=== PATIENT | female | born 1990 | race African-American/Black ===

== ENCOUNTER 2017-10-06 17:50 | Emergency (ER) | payer SELFPAY ==
[2017-10-06 18:00] VITALS: BP 132/85
[2017-10-06] MEDS ORDERED: ONDANSETRON 4 MG TAB.RAPDIS PO ONE (18:24)
--- NOTE | 2017-10-06 18:29 | ER Document Report ---
ED General - General Chief Complaint: Urinary Problem Stated Complaint: NAUSEA, BURNING WITH URINATION Time Seen by Provider: 10/06/17 18:24 Notes: 27-year-old female here with complaints of burning with urination and nausea that has been ongoing for the past 1-2 days. She has not had any abdominal pain fevers chills or vomiting. She had some low back pain yesterday but this resolved. She has not tried taking any medication for the symptoms. She has tried "flushing it out" with water with not much success. She has no prior history of UTI. TRAVEL OUTSIDE OF THE [place] IN LAST 30 DAYS: No - Related Data Allergies/Adverse Reactions: No Known Allergies Allergy (Verified 06/05/16 09:12) Past Medical History - Social History Smoking Status: Unknown if Ever Smoked Family History: None Neurological Medical History: Reports: Hx Migraine Renal/ Medical History: Reports: Hx Ovarian Cysts Past Surgical History: Reports: Hx Nose Surgery - Procedure on her nose as a child for nose bleeds, unclear of type., Other - Patient had a procedure on her nose but unclear exactly what. - Immunizations Immunizations up to date: Yes Hx Diphtheria, Pertussis, Tetanus Vaccination: Yes Review of Systems - Review of Systems Notes: See history of present illness for pertinent positive review of systems; otherwise all review of systems have been reviewed and are negative Physical Exam - Vital signs Vitals: Temp Pulse Resp BP Pulse Ox 98.6 F 85 20 132/85 H 99 10/06/17 17:57 10/06/17 17:57 10/06/17 17:57 10/06/17 17:57 10/06/17 17:57 - Notes Notes: PHYSICAL EXAMINATION: GENERAL: Well-appearing and in no acute distress. HEAD: Atraumatic, normocephalic. EYES: Pupils equal round and reactive to light, extraocular movements intact, sclera anicteric, conjunctiva are normal. ENT: nares patent, oropharynx clear without exudates. Moist mucous membranes. NECK: Normal range of motion, supple without lymphadenopathy LUNGS: CTAB and equal. No wheezes rales or rhonchi. HEART: Regular rate and rhythm without murmurs ABDOMEN: Soft, no tenderness. No guarding, no rebound EXTREMITIES: Normal range of motion, no pitting edema. No cyanosis. NEUROLOGICAL: Cranial nerves grossly intact. Normal sensory/motor exams. PSYCH: Normal mood, normal affect. SKIN: Warm, Dry, normal turgor, no rashes or lesions noted Course - Re-evaluation Re-evalutation: 10/06/17 18:29 MEDICAL DECISION MAKING: Concern for UTI Will check urinalysis and give Zofran Patient understands and agrees to the plan of care 10/06/17 19:41 No significant findings for UTI but culture sent Given the patient's symptoms, will prescribe Macrobid and Pyridium - Vital Signs Vital signs: Temp Pulse Resp BP Pulse Ox 98.6 F 85 20 132/85 H 99 10/06/17 17:57 10/06/17 17:57 10/06/17 17:57 10/06/17 17:57 10/06/17 17:57 - Laboratory Laboratory results interpreted by me: 10/06/17 18:40 Urine Ketones TRACE H Urine Blood SMALL H Ur Leukocyte Esterase TRACE H Discharge - Discharge Clinical Impression: Dysuria Condition: Good Disposition: HOME, SELF-CARE Additional Instructions: Finish the antibiotics and do not skip any doses. You were seen in the emergency department at [facility]. Please followup with your primary physician in the next few days for further management/evaluation. Please return to the emergency department for worsening of symptoms or any symptom that you deem to be concerning or life-threatening. Thank you for allowing us to be part of your care. Prescriptions: Nitrofurantoin/Nitrofuran Mac [Macrobid 100 mg Capsule] 1 tab PO BID #20 capsule Phenazopyridine HCl [Pyridium 100 Mg Tablet] 100 mg PO BIDP PRN #20 tablet PRN Reason:
[2017-10-06 19:06] LABS: APPEARANCE,URINE CLEAR; BILIRUBIN,URINE NEGATIVE (NEGATIVE); COLOR,URINE STRAW; GLUCOSE, URINE NEGATIVE (NEGATIVE); KETONES,URINE TRACE mg/dL (NEGATIVE); LEUKOCYTE ESTERASE,URINE TRACE (NEGATIVE); NITRITE,URINE NEGATIVE (NEGATIVE); PROTEIN,URINE NEGATIVE (NEGATIVE); UROBILINOGEN,URINE NEGATIVE mg/dL (<2.0)
== END 2017-10-06 19:51 | disposition home or self-care (01) ==
LOC: ER 17:50
DX: R30.0 Dysuria (principal); R11.0 Nausea
CPT/HCPCS: 99283; 81025; 81001; S0119

== ENCOUNTER 2019-05-17 01:36 | Emergency (ER) | payer SELFPAY ==
[2019-05-17] MEDS ORDERED: ONDANSETRON 4 MG TAB.RAPDIS PO ONE (04:04)
[2019-05-17] MEDS ORDERED: GUAIFENESIN/CODEINE PHOS 100-10 MG/ 5 ML UDC PO ONE (04:04)
--- NOTE | 2019-05-17 04:09 | ER Document Report ---
ED General - General Chief Complaint: Sore Throat Stated Complaint: SORE THROAT/CHEST TIGHTNESS Time Seen by Provider: 05/17/19 03:56 TRAVEL OUTSIDE OF THE [place] IN LAST 30 DAYS: No - HPI Notes: Patient is a 29-year-old female who presents emergency department for evaluation of sore throat and cough. Her sore throat started on Thursday. Her cough started on Thursday. Now patient presents to the ED for further evaluation. She denies any ear pain. No nasal congestion. No vomiting. She is eating and drinking normally. She is not short of breath. Normal bowel movements. No neck pain or stiffness. - Related Data Allergies/Adverse Reactions: No Known Allergies Allergy (Verified 06/05/16 09:12) Home Medications: None Past Medical History - General Information source: Patient - Social History Smoking Status: Current Some Day Smoker Family History: None Patient has suicidal ideation: No Patient has homicidal ideation: No Neurological Medical History: Reports: Hx Migraine Renal/ Medical History: Reports: Hx Ovarian Cysts. Denies: Hx Peritoneal Dialysis Past Surgical History: Reports: Hx Nose Surgery - Procedure on her nose as a child for nose bleeds, unclear of type., Other - Patient had a procedure on her nose but unclear exactly what. - Immunizations Immunizations up to date: Yes Hx Diphtheria, Pertussis, Tetanus Vaccination: Yes Review of Systems - Review of Systems Constitutional: No symptoms reported EENT: See HPI Cardiovascular: No symptoms reported Respiratory: See HPI Gastrointestinal: No symptoms reported Genitourinary: No symptoms reported Musculoskeletal: No symptoms reported Skin: No symptoms reported Neurological/Psychological: No symptoms reported Physical Exam - Vital signs Vitals: Temp Pulse Resp BP Pulse Ox 98.0 F 84 17 121/88 H 100 05/17/19 01:48 05/17/19 01:48 05/17/19 01:48 05/17/19 01:48 05/17/19 01:48 - Notes Notes: Vital signs reviewed, please refer to chart. Head is normocephalic, atraumatic. Pupils equal round, reactive to light. Oral mucosa is moist. Pharynx is mildly erythematous but no exudates or petechiae noted. Neck is supple without meningismus. No anterior cervical adenopathy. Heart is regular rate and rhythm. Lungs are clear to auscultation bilaterally. Abdomen is soft, nontender, normoactive bowel sounds throughout. Extremities without cyanosis, clubbing. Posterior calves are nontender. Peripheral pulses are equal. Skin is warm and dry. Patient is awake, alert, neurological exam is nonfocal. Course - Re-evaluation Re-evalutation: 05/17/19 04:07 Patient presents emergency department for evaluation. She had a strep screen ordered through triage which was found to be unremarkable, culture pending. At this point I suspect the patient has a URI. She has normal breath sounds, is oxygenating at 100%, respirations are easy and unlabored. She is given Robitussin-AC here, in addition to Zofran, and will be sent home with Tessalon Perles. She is to return to the ED with worsening. - Vital Signs Vital signs: Temp Pulse Resp BP Pulse Ox 98.0 F 84 17 121/88 H 100 05/17/19 01:48 05/17/19 01:48 05/17/19 01:48 05/17/19 01:48 05/17/19 01:48 Discharge - Discharge Clinical Impression: Sore throat Upper respiratory infection Qualifiers: URI type: unspecified URI Qualified Code(s): J06.9 - Acute upper respiratory infection, unspecified Condition: Stable Disposition: HOME, SELF-CARE Instructions: Upper Respiratory Illness ([facility]), Sore Throat ([facility]) Additional Instructions: Rest, stay well-hydrated. Take Tessalon Perles as needed for cough. Follow-up with your primary care doctor this week. You will be contacted if your throat culture becomes positive. Return to the emergency department with worsening or new concerning symptoms.
[2019-05-17 04:24] VITALS: BP 117/84
== END 2019-05-17 04:23 | disposition home or self-care (01) ==
LOC: ER 01:36
DX: J06.9 Acute upper respiratory infection, unspecified (principal); J02.9 Acute pharyngitis, unspecified; R05 Cough; F17.200 Nicotine dependence, unspecified, uncomplicated
CPT/HCPCS: 87070; 87880; S0119; 99283

== ENCOUNTER 2019-07-17 19:47 | Emergency (ER) | payer MEDICAID ==
[2019-07-17] MEDS ORDERED: NORMAL SALINE 1000 ML 1,000 ML IV ONE (20:36)
[2019-07-17] MEDS ORDERED: METOCLOPRAMIDE HCL INJ/PF 10 MG/2 ML SDV IV ONE (20:36)
--- NOTE | 2019-07-17 20:39 | ER Document Report ---
ED Medical Screen (RME) - General Chief Complaint: Abdominal Pain Stated Complaint: STOMACH PAIN Time Seen by Provider: 07/17/19 20:31 Notes: Patient is a 29-year-old female, G3, P0 who presents to the emergency department with a chief complaint of abdominal pain. She also states that she feels nauseous. She is about 5 to 6 weeks , as per patient. Exam: Soft mildly tender right mid abdomen. I have greeted and performed a rapid initial assessment of this patient. A comprehensive ED assessment and evaluation of the patient, analysis of test results and completion of medical decision making process will be conducted by an additional ED providers. TRAVEL OUTSIDE OF THE [place] IN LAST 30 DAYS: No - Related Data Allergies/Adverse Reactions: No Known Allergies Allergy (Verified 06/05/16 09:12) Home Medications: Vitamins Past Medical History - Social History Frequency of alcohol use: None Drug Abuse: None Neurological Medical History: Reports: Hx Migraine Renal/ Medical History: Reports: Hx Ovarian Cysts. Denies: Hx Peritoneal Dialysis Past Surgical History: Reports: Hx Nose Surgery - Procedure on her nose as a child for nose bleeds, unclear of type., Other - Patient had a procedure on her nose but unclear exactly what. - Immunizations Immunizations up to date: Yes Hx Diphtheria, Pertussis, Tetanus Vaccination: Yes Physical Exam - Vital signs Vitals: Temp Pulse Resp BP Pulse Ox 98.1 F 92 16 143/77 H 100 07/17/19 19:52 07/17/19 19:52 07/17/19 19:52 07/17/19 19:52 07/17/19 19:52 Course - Vital Signs Vital signs: Temp Pulse Resp BP Pulse Ox 98.1 F 92 16 143/77 H 100 07/17/19 19:52 07/17/19 19:52 07/17/19 19:52 07/17/19 19:52 07/17/19 19:52
[2019-07-17 21:18] LABS: APPEARANCE,URINE SLIGHTLY-CLOUDY; BILIRUBIN,URINE NEGATIVE (NEGATIVE); COLOR,URINE YELLOW; GLUCOSE, URINE NEGATIVE (NEGATIVE); KETONES,URINE NEGATIVE (NEGATIVE); LEUKOCYTE ESTERASE,URINE NEGATIVE (NEGATIVE); NITRITE,URINE NEGATIVE (NEGATIVE); PROTEIN,URINE NEGATIVE (NEGATIVE); URINE SPECIFIC GRAVITY 1.015; UROBILINOGEN,URINE NEGATIVE mg/dL (<2.0)
[2019-07-17 21:25] LABS: ALBUMIN 4.7 g/dL (3.5-5.0); ALKALINE PHOSPHATASE 75 U/L (38-126); ANION GAP 10 (5-19); ASPARTATE AMINO TRANSFERASE 24 U/L (14-36); BILIRUBIN,DIRECT 0.2 mg/dL (0.0-0.4); BILIRUBIN,TOTAL 0.4 mg/dL (0.2-1.3); BLOOD UREA NITROGEN 11 mg/dL (7-20); CALCIUM 9.5 mg/dL (8.4-10.2); CARBON DIOXIDE 26 mmol/L (22-30); CHLORIDE 104 mmol/L (98-107); GLUCOSE 88 mg/dL (75-110); POTASSIUM 4.3 mmol/L (3.6-5.0); TOTAL PROTEIN 7.9 g/dL (6.3-8.2)
[2019-07-17 21:41] LABS: ABSOLUTE EOSINOPHILS # (AUTO) 0.2 10^3/uL (0.0-0.6); ABSOLUTE LYMPHOCYTES (AUTO) 3.6 10^3/uL (0.5-4.7); ABSOLUTE MONOCYTES (AUTO) 0.8 10^3/uL (0.1-1.4); ABSOLUTE NEUT (AUTO) 8.9 10^3/uL (1.7-8.2); BASOPHILS % (AUTO) 0.3 % (0-2); EOSINOPHILS % (AUTO) 1.4 % (0-6); HEMATOCRIT 37.3 % (36.0-47.0); HEMOGLOBIN 12.6 g/dL (12.0-15.5); LYMPHOCYTES % (AUTO) 26.7 % (13-45); MEAN CORPUSCULAR HEMOGLOBIN 32.4 pg (27.0-33.4); MEAN CORPUSCULAR HGB CONC 33.7 g/dL (32.0-36.0); MEAN CORPUSCULAR VOLUME 96 fl (80-97); MONOCYTES % (AUTO) 6.1 % (3-13); PLATELET COUNT 309 10^3/uL (150-450); RED BLOOD COUNT 3.88 10^6/uL (3.72-5.28); RED CELL DISTRIBUTION WIDTH 13.1 % (11.5-14.0); SEGMENTED NEUTROPHILS % (AUTO) 65.5 % (42-78); TOTAL CELLS COUNTED % (AUTO) 100 %; WHITE BLOOD COUNT 13.6 10^3/uL (4.0-10.5)
[2019-07-17 21:43] LABS: ACETAMINOPHEN < 10 ug/mL (10-30)
--- NOTE | 2019-07-17 21:49 | ER Document Report ---
ED General - General Chief Complaint: Abdominal Pain Stated Complaint: STOMACH PAIN Time Seen by Provider: 07/17/19 20:31 TRAVEL OUTSIDE OF THE [place] IN LAST 30 DAYS: No - Related Data Allergies/Adverse Reactions: No Known Allergies Allergy (Verified 06/05/16 09:12) Home Medications: Vitamins Past Medical History - Social History Smoking Status: Former Smoker Frequency of alcohol use: None Drug Abuse: None Family History: None Patient has suicidal ideation: No Patient has homicidal ideation: No Neurological Medical History: Reports: Hx Migraine Renal/ Medical History: Reports: Hx Ovarian Cysts. Denies: Hx Peritoneal Dialysis Past Surgical History: Reports: Hx Nose Surgery - Procedure on her nose as a child for nose bleeds, unclear of type., Other - Patient had a procedure on her nose but unclear exactly what. - Immunizations Immunizations up to date: Yes Hx Diphtheria, Pertussis, Tetanus Vaccination: Yes Physical Exam - Vital signs Vitals: Temp Pulse Resp BP Pulse Ox 98.1 F 92 16 143/77 H 100 07/17/19 19:52 07/17/19 19:52 07/17/19 19:52 07/17/19 19:52 07/17/19 19:52 - Notes Notes: This patient is 3 complaining of a right middle quadrant dental pain started yesterday and today he. But there is been some intermittent. She has some nausea but she is had this throughout most of the she has had no vomiting fevers chest pain or shortness of breath appetite is been good and had a Sam for lunch. No vaginal bleeding or discharge. Had a positive test but has not seen OB yet. before with no complications and no history of gallbladder disease\ Last history is unremarkable. Social history smokes but quit when she found out she is no alcohol LMP was May 2016 Review of systems pertinent positives and negatives in HPI otherwise all the systems were reviewed and acutely negative PHYSICIAN EXAM -vital signs are noted triage note and note from triage reviewed GENERAL: Well-appearing, well-nourished and in __no distress____ HEAD: Atraumatic, normocephalic. EYES: Pupils equal round and reactive to light, extraocular movements intact, sclera anicteric, conjunctiva are normal. ENT: nares patent, oropharynx clear without exudates. Moist mucous membranes. NECK: supple without lymphadenopathy LUNGS: Breath sounds clear to auscultation bilaterally and equal. No wheezes rales or rhonchi. HEART: Regular rate and rhythm without murmurs ABDOMEN: Soft, nontender, normoactive bowel sounds. There is no localizing tenderness in the right upper quadrant or the right lower quadrant. The uterus is nonenlarged EXTREMITIES: No deformity, no edema. NEUROLOGICAL: No focal neurological deficits. Moves all extremities spontaneously and on command. PSYCH: Normal mood, normal affect. SKIN: Warm, Dry, normal turgor, no rashes or lesions noted. BACK-nontender in the midline Differential viral syndrome biliary colic UTI Course - Re-evaluation Re-evalutation: 07/18/19 00:59 ED patient is remained stable abdomen is remained nontender after obtaining ultrasound I did order a Rh on the patient 07/18/19 00:59 Medical decision making patient presents with written abdominal pain clear etiology. Her laboratory studies here are unremarkable ultrasound is unremarkable she looks well has no active surgical abdomen at this point I think she be discharged home With instructions for threatened AB to be given a prescription for pyridoxine rash and OB follow-up in 2 to 3 days At this time there is no indication for admission. I have discussed the findings with patient/family with return precautions and follow-up recommendations. Verbal discharge instructions given at the bedside and opportunity for questions given. Medication warnings were given if indicated. Patient is in agreement with this plan and has verbalized understanding of return precautions and the need for primary care follow-up as directed.. 07/18/19 01:03 - Vital Signs Vital signs: Temp Pulse Resp BP Pulse Ox 98.1 F 92 16 143/77 H 100 07/17/19 19:52 07/17/19 19:52 07/17/19 19:52 07/17/19 19:52 07/17/19 19:52 - Laboratory Result Diagrams: 07/17/19 21:30 07/17/19 20:53 Laboratory results interpreted by me: 07/17/19 07/17/19 07/17/19 20:53 20:53 21:30 WBC 13.6 H Absolute Neuts (auto) 8.9 H Beta HCG, Quant 13762.00 H Urine Blood SMALL H Acetaminophen < 10 L 07/18/19 00:59 Is reviewed white count minimally elevated which may be just related to her - Diagnostic Test Radiology reviewed: Reports reviewed Discharge - Discharge Clinical Impression: Threatened Abdominal pain Qualifiers: Abdominal location: unspecified location Qualified Code(s): R10.9 - Unspecified abdominal pain Condition: Good Disposition: HOME, SELF-CARE Instructions: Abdominal Pain ([facility]), Threatened Miscarriage ([facility]) Additional Instructions: Return if you get worse or unable to follow-up with your family doctor Please review the discharge instructions. They will tell you about your illness/injury, the normal course and symptoms you need to return to the emergency department for You can take Tylenol for pain Fatty greasy foods for 3 to 5 days Follow-up with your PROJECTS MANAGER in 2 to 3 days For fever greater than 101 increased abdominal pain or heavy vaginal bleeding with clots Prescriptions: Pyridoxine HCl (Vitamin B6) [B-Campos] 25 mg PO ASDIR PRN #30 lozenge PRN Reason: Forms: Return to Work
--- NOTE | 2019-07-17 23:20 | RADIOLOGY REPORT (SQ) ---
US PELVIS EXAM DATE: 07/17/2019 8:36 PM OFFICE EMPLOYEE HISTORY: Early . Pelvic pain. COMPARISON: None. TECHNIQUE: Grayscale, color Doppler, and spectral Doppler ultrasound images of the pelvis were obtained. FINDINGS: There is an intrauterine gestational sac with a yolk sac and pole visualized. The crown-rump length measures 0.4 cm corresponding to 6 weeks 1 days of . heart rate is 104 age-indeterminate. There is an adjacent 8 mm subchorionic hematoma. Cervix is 3 cm in length. The ovaries are normal in size and contain normal color Doppler blood flow. There is a 2 cm corpus luteum cyst in the right ovary. No pelvic free fluid. IMPRESSION: 1. Single live IUP with estimated gestational age 6 weeks 1 days. 2. Small adjacent subchorionic hemorrhage; attention on follow-up imaging is suggested.
[2019-07-18 01:17] VITALS: BP 120/72
== END 2019-07-18 01:18 | disposition home or self-care (01) ==
LOC: ER 19:47
DX: O20.0 Threatened abortion (principal); R10.9 Unspecified abdominal pain; Z3A.01 Less than 8 weeks gestation of pregnancy
CPT/HCPCS: 99284; 96361; 96374; 86900; 86901; 36415; 84702; 83690; 80307; 85025; 80053; 81001; 76817; 93976; J2765; J7030

== ENCOUNTER 2019-09-13 09:10 | Emergency (ER) | payer MEDICAID ==
--- NOTE | 2019-09-13 09:29 | ER Document Report ---
ED Medical Screen (RME) - General Chief Complaint: Abdominal Pain Stated Complaint: ABDOMINAL PAIN,VOMITING Time Seen by Provider: 09/13/19 09:26 Primary Care Provider: ELIZABETH NEVAREZ MD [Primary Care Provider] - Follow up as needed Notes: approx 14 wk female presents for abd "tightness" and pain that started yesterday at around 1130. Pt states she just drove back from [place] and had stopped to eat something. States all last night "I had vomiting." Denies any current nausea/vomiting, fever, vaginal bleeding/discharge. States just in pain across upper abdomen. Abd soft, tenderness diffusely without guarding or rebound. ObGyn is [facility]. Just transferred from health department and has first appointment next week. I have greeted and performed a rapid initial assessment of this patient. A comprehensive ED assessment and evaluation of the patient, analysis of test results and completion of the medical decision making process with be conducted by additional ED providers. TRAVEL OUTSIDE OF THE [place] IN LAST 30 DAYS: No - Related Data Allergies/Adverse Reactions: No Known Allergies Allergy (Verified 06/05/16 09:12) Past Medical History Neurological Medical History: Reports: Hx Migraine Renal/ Medical History: Reports: Hx Ovarian Cysts. Denies: Hx Peritoneal Dialysis Past Surgical History: Reports: Hx Nose Surgery - Procedure on her nose as a child for nose bleeds, unclear of type., Other - Patient had a procedure on her nose but unclear exactly what. - Immunizations Immunizations up to date: Yes Hx Diphtheria, Pertussis, Tetanus Vaccination: Yes Physical Exam - Vital signs Vitals: Temp Pulse Resp BP Pulse Ox 98.4 F 101 H 16 119/74 98 09/13/19 09:15 09/13/19 09:15 09/13/19 09:15 09/13/19 09:15 09/13/19 09:15 Course - Vital Signs Vital signs: Temp Pulse Resp BP Pulse Ox 98.4 F 101 H 16 119/74 98 09/13/19 09:15 09/13/19 09:15 09/13/19 09:15 09/13/19 09:15 09/13/19 09:15 Doctor's Discharge - Discharge Referrals: ELIZABETH NEVAREZ MD [Primary Care Provider] - Follow up as needed
[2019-09-13 09:48] LABS: ABSOLUTE EOSINOPHILS # (AUTO) 0.1 10^3/uL (0.0-0.6); ABSOLUTE LYMPHOCYTES (AUTO) 1.2 10^3/uL (0.5-4.7); ABSOLUTE MONOCYTES (AUTO) 0.5 10^3/uL (0.1-1.4); ABSOLUTE NEUT (AUTO) 8.3 10^3/uL (1.7-8.2); BASOPHILS % (AUTO) 0.1 % (0-2); EOSINOPHILS % (AUTO) 0.6 % (0-6); HEMATOCRIT 36.5 % (36.0-47.0); HEMOGLOBIN 12.7 g/dL (12.0-15.5); LYMPHOCYTES % (AUTO) 12.1 % (13-45); MEAN CORPUSCULAR HEMOGLOBIN 33.7 pg (27.0-33.4); MEAN CORPUSCULAR HGB CONC 34.9 g/dL (32.0-36.0); MEAN CORPUSCULAR VOLUME 97 fl (80-97); MONOCYTES % (AUTO) 4.9 % (3-13); PLATELET COUNT 296 10^3/uL (150-450); RED BLOOD COUNT 3.78 10^6/uL (3.72-5.28); RED CELL DISTRIBUTION WIDTH 12.8 % (11.5-14.0); SEGMENTED NEUTROPHILS % (AUTO) 82.3 % (42-78); TOTAL CELLS COUNTED % (AUTO) 100 %; WHITE BLOOD COUNT 10.1 10^3/uL (4.0-10.5)
[2019-09-13 09:52] LABS: APPEARANCE,URINE SLIGHTLY-CLOUDY; BILIRUBIN,URINE NEGATIVE (NEGATIVE); GLUCOSE, URINE NEGATIVE (NEGATIVE); KETONES,URINE TRACE mg/dL (NEGATIVE); PROTEIN,URINE 100 mg/dL (NEGATIVE); URINE SPECIFIC GRAVITY 1.035; UROBILINOGEN,URINE NEGATIVE mg/dL (<2.0)
[2019-09-13 09:53] LABS: COLOR,URINE DARK YELLOW
[2019-09-13 10:15] LABS: ALKALINE PHOSPHATASE 59 U/L (38-126); ANION GAP 7 (5-19); ASPARTATE AMINO TRANSFERASE 24 U/L (14-36); BILIRUBIN,TOTAL 0.3 mg/dL (0.2-1.3); BLOOD UREA NITROGEN 13 mg/dL (7-20); CALCIUM 9.3 mg/dL (8.4-10.2); CARBON DIOXIDE 23 mmol/L (22-30); CHLORIDE 104 mmol/L (98-107); GLUCOSE 97 mg/dL (75-110); POTASSIUM 4.4 mmol/L (3.6-5.0)
--- NOTE | 2019-09-13 11:04 | RADIOLOGY REPORT (SQ) ---
EXAM DESCRIPTION: U/S ABDOMEN LTD W/DOPPLER COMPLETED DATE/TIME: 09/13/2019 10:36 am REASON FOR STUDY: upper abd pain, 14 wk COMPARISON: None. TECHNIQUE: Dynamic and static grayscale images acquired of the abdomen and recorded on PACS. Additio nal selected color Doppler and spectral images recorded. LIMITATIONS: None. FINDINGS: PANCREAS: No masses. Visualized pancreatic duct normal caliber. LIVER: No masses. Echotexture normal. LIVER VASCULATURE: Normal directional flow of the main portal vein and hepatic veins. GALLBLADDER: No stones. Normal wall thickness. No pericholecystic fluid. ULTRASOUND-DETECTED GRANADOS'S SIGN: Negative. INTRAHEPATIC DUCTS AND COMMON DUCT: CBD and intrahepatic ducts normal caliber. No filling defects. INFERIOR VENA CAVA: Normal flow. AORTA: No aneurysm. RIGHT KIDNEY: Normal size. Normal echogenicity. No solid or suspicious masses. No hydronephrosis. No calcifications. PERITONEAL AND RIGHT PLEURAL SPACE: No ascites or effusions. OTHER: No other significant findings. IMPRESSION: NORMAL RIGHT UPPER QUADRANT ULTRASOUND. TECHNICAL DOCUMENTATION: JOB ID: [id number] [employer]- All Rights Reserved Reading location - IP/workstation name: [email or web address]
--- NOTE | 2019-09-13 11:06 | RADIOLOGY REPORT (SQ) ---
EXAM DESCRIPTION: U/S OB LIMITED COMPLETED DATE/TIME: 09/13/2019 10:36 am REASON FOR STUDY: abd pain, 14 wk COMPARISON: 07/17/2019. TECHNIQUE: Limited transabdominal grayscale ultrasound for evaluation of specific requested obstetri delia parameters. LIMITATIONS: None. FINDINGS: EGA: 14 week 3 day. RICHARD: 03/10/2020. CERVICAL LENGTH: 3.5 cm. Closed. ETHAN: Largest pocket 2.6 x 6.2 cm. FHR: 144 beats per minute. PRESENTATION: Variable. PLACENTA: Posterior fundal. ANATOMY: Not assessed OTHER: No other significant findings. IMPRESSION: LIMITED OBSTETRICAL ULTRASOUND WITH MEASURED PARAMETERS DELINEATED ABOVE. Trimester of : Second trimester - 13 weeks 1 day to 27 weeks 6 days. TECHNICAL DOCUMENTATION: JOB ID: [id number] 2010 [employer]- All Rights Reserved Reading location - IP/workstation name: [email or web address]
--- NOTE | 2019-09-13 11:37 | ER Document Report ---
ED GI/ - General Chief Complaint: Abdominal Pain Stated Complaint: ABDOMINAL PAIN,VOMITING Time Seen by Provider: 09/13/19 09:26 Primary Care Provider: ELIZABETH NEVAREZ MD [Primary Care Provider] - Follow up as needed Notes: HPI: Patient is a -0-2-0 at 14 weeks by ultrasound who presents today with the onset yesterday of some epigastric pain radiating across the abdomen with no radiation to the back. This lasted only momentarily. She did vomit x2. No lower abdominal pain, vaginal bleeding, or dysuria. No flank pain or cough. Mild discomfort again this morning prior to eating. Currently pain-free. ROS: See HPI All other review of systems reviewed and otherwise negative Reviewed vital signs and nursing note as charted by RN. PHYSICAL EXAM: CONSTITUTIONAL: Alert and oriented and responds appropriately to questions. Well-appearing; well-nourished HEAD: Normocephalic; atraumatic EYES: PERRL; sclerae non-icteric ENT: Normal nose; no rhinorrhea; moist mucous membranes; pharynx without lesions noted NECK: Supple without meningismus; non-tender; no cervical lymphadenopathy, no masses CARD: Regular rate and rhythm; no murmurs; symmetric distal pulses RESP: Normal chest excursion without splinting or tachypnea; breath sounds clear and equal bilaterally; no wheezes, no rhonchi, no rales ABD/GI: Normal bowel sounds; nondistended with no palpable fundus. No tenderness to deep palpation currently of all 4 quadrants of the abdomen BACK: The back appears normal and is non-tender to palpation EXT: Normal ROM in all joints; non-tender to palpation; no edema SKIN: No acute lesions noted NEURO: CN 2-12 intact; 5/5 bilateral upper and lower extremity strength with sensation intact to light touch PSYCH: The patient's mood and manner are appropriate. Grooming and personal hygiene are appropriate. TRAVEL OUTSIDE OF THE [place] IN LAST 30 DAYS: No - Related Data Allergies/Adverse Reactions: No Known Allergies Allergy (Verified 09/13/19 09:37) Past Medical History - Social History Smoking Status: Unknown if Ever Smoked Family History: None Patient has suicidal ideation: No Patient has homicidal ideation: No Neurological Medical History: Reports: Hx Migraine Renal/ Medical History: Reports: Hx Ovarian Cysts. Denies: Hx Peritoneal Dialysis Past Surgical History: Reports: Hx Nose Surgery - Procedure on her nose as a child for nose bleeds, unclear of type., Other - Patient had a procedure on her nose but unclear exactly what. - Immunizations Immunizations up to date: Yes Hx Diphtheria, Pertussis, Tetanus Vaccination: Yes Physical Exam - Vital signs Vitals: Temp Pulse Resp BP Pulse Ox 98.4 F 101 H 16 119/74 98 09/13/19 09:15 09/13/19 09:15 09/13/19 09:15 09/13/19 09:15 09/13/19 09:15 Course - Re-evaluation Re-evalutation: Given the above history and physical, ultrasound of the gallbladder as well as the pelvis was ordered in triage. Patient denies any pain at this time. No lower abdominal pain no vaginal bleeding. 09/13/19 12:02 Labs and imaging as recorded. Patient still denies any pain. I believe this could possibly be reflux related. Patient does have an QUALITY ASSURANCE SUPERVISOR FINAL that she will follow-up with. Strict return precautions have been explained. Patient still has no pain to the lower pelvis or flank at this time. - Vital Signs Vital signs: Temp Pulse Resp BP Pulse Ox 98.4 F 101 H 16 119/74 98 09/13/19 09:15 09/13/19 09:15 09/13/19 09:15 09/13/19 09:15 09/13/19 09:15 - Laboratory Result Diagrams: 09/13/19 09:34 09/13/19 09:34 Laboratory results interpreted by me: 09/13/19 09/13/19 09/13/19 09:34 09:34 09:34 MCH 33.7 H Lymph % (Auto) 12.1 L Absolute Neuts (auto) 8.3 H Seg Neutrophils % 82.3 H Sodium 134.2 L Beta HCG, Quant 87337.00 H Urine Protein 100 H Urine Ketones TRACE H Urine Blood SMALL H Urine Ascorbic Acid 40 H Discharge - Discharge Clinical Impression: Abdominal pain affecting Condition: Good Disposition: HOME, SELF-CARE Additional Instructions: Come back immediately for any return of pain, change in location or quality of pain, vaginal bleeding, fevers or vomiting, or any other acute problems. Please follow-up with the primary QUALITY ASSURANCE SUPERVISOR FINAL as we have discussed. Prescriptions: Promethazine HCl [Phenergan 25 mg Tablet] 25 mg PO Q6H PRN #15 tablet PRN Reason: Referrals: ELIZABETH NEVAREZ MD [Primary Care Provider] - Follow up as needed
[2019-09-13 12:11] VITALS: BP 116/67
== END 2019-09-13 12:12 | disposition home or self-care (01) ==
LOC: ER 09:10
DX: O26.892 Other specified pregnancy related conditions, second trimester (principal); R10.13 Epigastric pain; O21.9 Vomiting of pregnancy, unspecified; Z3A.14 14 weeks gestation of pregnancy
CPT/HCPCS: 36415; 76705; 76815; 80053; 81001; 83690; 84702; 85025; 93976; 99284

== ENCOUNTER 2020-03-14 05:09 | Inpatient (IN) | payer MEDICAID ==
[2020-03-05 12:59] LABS: ABSOLUTE EOSINOPHILS # (AUTO) 0.1 10^3/uL (0.0-0.6); ABSOLUTE LYMPHOCYTES (AUTO) 2.3 10^3/uL (0.5-4.7); ABSOLUTE MONOCYTES (AUTO) 0.4 10^3/uL (0.1-1.4); ABSOLUTE NEUT (AUTO) 8.6 10^3/uL (1.7-8.2); BASOPHILS % (AUTO) 0.3 % (0-2); EOSINOPHILS % (AUTO) 0.6 % (0-6); HEMATOCRIT 33.5 % (36.0-47.0); HEMOGLOBIN 11.3 g/dL (12.0-15.5); LYMPHOCYTES % (AUTO) 19.9 % (13-45); MEAN CORPUSCULAR HEMOGLOBIN 32.1 pg (27.0-33.4); MEAN CORPUSCULAR HGB CONC 33.8 g/dL (32.0-36.0); MEAN CORPUSCULAR VOLUME 95 fl (80-97); MONOCYTES % (AUTO) 3.8 % (3-13); PLATELET COUNT 373 10^3/uL (150-450); RED BLOOD COUNT 3.52 10^6/uL (3.72-5.28); SEGMENTED NEUTROPHILS % (AUTO) 75.4 % (42-78); TOTAL CELLS COUNTED % (AUTO) 100 %; WHITE BLOOD COUNT 11.4 10^3/uL (4.0-10.5)
[2020-03-05 13:07] LABS: APPEARANCE,URINE CLEAR; BILIRUBIN,URINE NEGATIVE (NEGATIVE); COLOR,URINE YELLOW; GLUCOSE, URINE NEGATIVE (NEGATIVE); KETONES,URINE NEGATIVE (NEGATIVE); LEUKOCYTE ESTERASE,URINE SMALL (NEGATIVE); NITRITE,URINE NEGATIVE (NEGATIVE); PROTEIN,URINE 30 mg/dL (NEGATIVE); URINE SPECIFIC GRAVITY 1.017; UROBILINOGEN,URINE NEGATIVE mg/dL (<2.0)
[2020-03-05 13:22] LABS: URINE AMPHETAMINES SCREEN NEGATIVE; URINE BARBITURATES SCREEN NEGATIVE; URINE BENZODIAZEPINES SCREEN NEGATIVE; URINE COCAINE SCREEN NEGATIVE; URINE MARIJUANA (THC) SCREEN NEGATIVE; URINE METHADONE SCREEN NEGATIVE; URINE PHENCYCLIDINE SCREEN NEGATIVE
[2020-03-14] MEDS ORDERED: CEFAZOLIN 2 GM/D5W RTU 2 GM/50 ML RTUPB IV PRN (06:14)
[2020-03-14 06:40] LABS: ABSOLUTE EOSINOPHILS # (AUTO) 0.1 10^3/uL (0.0-0.6); ABSOLUTE LYMPHOCYTES (AUTO) 2.5 10^3/uL (0.5-4.7); ABSOLUTE MONOCYTES (AUTO) 0.6 10^3/uL (0.1-1.4); BASOPHILS % (AUTO) 0.2 % (0-2); HEMATOCRIT 30.3 % (36.0-47.0); HEMOGLOBIN 10.5 g/dL (12.0-15.5); LYMPHOCYTES % (AUTO) 27.4 % (13-45); MEAN CORPUSCULAR HEMOGLOBIN 32.8 pg (27.0-33.4); MEAN CORPUSCULAR HGB CONC 34.6 g/dL (32.0-36.0); MEAN CORPUSCULAR VOLUME 95 fl (80-97); MONOCYTES % (AUTO) 6.7 % (3-13); PLATELET COUNT 336 10^3/uL (150-450); RED BLOOD COUNT 3.19 10^6/uL (3.72-5.28); RED CELL DISTRIBUTION WIDTH 13.7 % (11.5-14.0); SEGMENTED NEUTROPHILS % (AUTO) 64.7 % (42-78); TOTAL CELLS COUNTED % (AUTO) 100 %; WHITE BLOOD COUNT 9.2 10^3/uL (4.0-10.5)
[2020-03-14 06:44] LABS: APPEARANCE,URINE CLOUDY; BILIRUBIN,URINE NEGATIVE (NEGATIVE); COLOR,URINE YELLOW; GLUCOSE, URINE NEGATIVE (NEGATIVE); KETONES,URINE NEGATIVE (NEGATIVE); LEUKOCYTE ESTERASE,URINE MODERATE (NEGATIVE); NITRITE,URINE NEGATIVE (NEGATIVE); PROTEIN,URINE 30 mg/dL (NEGATIVE); URINE SPECIFIC GRAVITY 1.016; UROBILINOGEN,URINE NEGATIVE mg/dL (<2.0)
[2020-03-14 06:59] LABS: URINE AMPHETAMINES SCREEN NEGATIVE; URINE BARBITURATES SCREEN NEGATIVE; URINE BENZODIAZEPINES SCREEN NEGATIVE; URINE COCAINE SCREEN NEGATIVE; URINE MARIJUANA (THC) SCREEN NEGATIVE; URINE METHADONE SCREEN NEGATIVE; URINE PHENCYCLIDINE SCREEN NEGATIVE
[2020-03-14] MEDS ORDERED: KETAMINE HCL INJ 500 MG/10 ML VIAL ONE (09:54)
[2020-03-14] MEDS ORDERED: OXYTOCIN 10 UNIT/ML VIAL ONE (09:55)
[2020-03-14] MEDS ORDERED: FENTANYL CITRATE INJ/PF 100 MCG/2 ML AMPUL ONE (09:55)
[2020-03-14] MEDS ORDERED: ONDANSETRON HCL INJ/PF 4 MG/2 ML SDV ONE (09:55)
[2020-03-14] MEDS ORDERED: KETOROLAC TROMETHAMINE INJ/PF 30 MG/1 ML SDV ONE (10:02)
[2020-03-14] MEDS ORDERED: OXYTOCIN/0.9 % SODIUM CHLORIDE 30 UNIT/500 ML RTUINJ ONE (10:02)
[2020-03-14] MEDS ORDERED: BUPIVACAINE HCL 0.25 % INJ/PF (2.5 MG/1 ML) 30 ML VIAL ONE (10:02)
[2020-03-14] MEDS ORDERED: CITRIC ACID/SODIUM CITRATE ORAL SOLN 15 ML UDCUP ONE (10:04)
[2020-03-14] MEDS ORDERED: DIPHENHYDRAMINE HCL 50 MG/ML VIAL IV PRN (11:16)
[2020-03-14] MEDS ORDERED: FENTANYL CITRATE INJ/PF 100 MCG/2 ML AMPUL IV PRN ×3 (11:16)
[2020-03-14] MEDS ORDERED: MEPERIDINE HCL/PF INJ 25 MG/1 ML DISP.SYRIN IV PRN (11:16)
[2020-03-14] MEDS ORDERED: OXYCODONE-ACETAMINOPHEN 5-325 MG TABLET PO PRN ×3 (11:16→11:27)
[2020-03-14] MEDS ORDERED: ONDANSETRON HCL INJ/PF 4 MG/2 ML SDV IV PRN (11:16)
[2020-03-14] MEDS ORDERED: PROMETHAZINE HCL INJ 25 MG/1 ML VIAL IV PRN ×3 (11:16→11:27)
--- NOTE | 2020-03-14 11:26 | Operative Report ---
Operative Report DATE OF SURGERY: 03/14/20 PREOPERATIVE DIAGNOSIS: Macrosomia and postdates POSTOPERATIVE DIAGNOSIS: Same plus persistent occiput posterior presentation OPERATION: Primary via low transverse uterine incision SURGEON: JEANE RINALDI ANESTHESIA: Spinal TISSUE REMOVED OR ALTERED: Placenta COMPLICATIONS: None ESTIMATED BLOOD LOSS: 400 cc INTRAOPERATIVE FINDINGS: Viable infant crying at delivery. Baby is in occiput posterior presentation. Normal uterus tubes and ovaries PROCEDURE: Patient was taken to the OR and placed in supine position after her spinal anesthesia. She is prepared and draped in sterile fashion. Blakely was placed for drainage of the bladder. Low transverse incision was made and carried down the level of the fascia. The fascial incision was made with knife and extended bilaterally with curved Felix scissors. The fascia was off the rectus muscles using sharp and blunt dissection. The rectus muscles are in the midline. The peritoneum was entered without incident. Bladder blade was placed in uterine segment was identified. A low transverse incision was made creating a bladder flap. Bladder blade was placed low transverse uterine incision was made with the knife and extended with fingertips. The baby was delivered with some fundal pressure. Mouth and nose were suctioned free. The cord is doubly clamped and cut. Baby is passed off to the ornamental rail installer in attendance. The placenta was manually extracted with trailing membranes. The uterus was externalized wrapped in a moist lap sponge. Uterine contents wiped free. Uterus was closed with a running locking layer of 0 chromic suture using the second layer to imbricate the first completing a double layer closure of the uterus. The serosa was closed with a running 2-0 chromic stitch. The pelvis was irrigated and suctioned free of fluid the uterus was replaced in the abdomen. The abdominal wall peritoneum was closed with running 2-0 chromic stitch. Fascia was closed with a running 0 Vicryl in 2 segments. Rell's layer was brought together with 0 plain gut stitch and the skin was closed with running subcuticular 4-0 undyed Vicryl stitch. The wound was dressed mother and baby did well.
[2020-03-14] MEDS ORDERED: MEASLES,MUMPS&RUBELLA VACC/PF 0.5 ML VIAL SUBCUT PRN (11:27)
[2020-03-14] MEDS ORDERED: OXYTOCIN/0.9 % SODIUM CHLORIDE 30 UNIT/500 ML RTUINJ IV PRN (11:27)
[2020-03-14] MEDS ORDERED: DIPH/PERTUSS(ACELL)/TETANUS VAC/PF 0.5 ML SYR (>=10YO) IM PRN (11:27)
[2020-03-14] MEDS ORDERED: ACETAMINOPHEN 325 MG TABLET PO PRN (11:27)
[2020-03-14] MEDS ORDERED: SIMETHICONE 80 MG TAB.CHEW PO PRN (11:27)
[2020-03-14] MEDS ORDERED: ACETAMINOPHEN 1,000 MG/100 ML RTUPB IV PRN (11:27)
[2020-03-14] MEDS ORDERED: RINGERS SOLUTION,LACTATED 1,000 ML IV PRN (11:27)
[2020-03-14] MEDS ORDERED: PROMETHAZINE HCL INJ 25 MG/1 ML VIAL ONE (13:03)
[2020-03-14] MEDS ORDERED: HYDROMORPHONE HCL INJ/PF 2 MG/ML AMPULE ONE (13:03)
[2020-03-14] MEDS: HYDROMORPHONE HCL INJ/PF 2 MG/ML AMPULE IV PRN ×3 (13:07→23:12)
--- NOTE | 2020-03-14 13:44 | Delivery Summary ---
Del Sum A-C Datetime Report Generated by CPN: 03/14/2020 13:44 DELIVERY PERSONNEL DELIVERY PERSONNEL: [id number] Delivery Doctor:: Vlad Deutsch MD PECAN HULLER:: Winsome Olivares CRNA [facility] [employer] Experience Strategy:: Eleanor Laurent RN Neonatal Nurse Practitioner:: YONNY Antonio Nursery Nurse:: Shalini Cummins RN Assembler Convertible Top/PEANUT SHELLER: Magda Lazcano CST Assembler Convertible Top/PEANUT SHELLER: Deannatiana Mike, REPAIRING CALIBRATOR MATERNAL INFORMATION Delivery Anesthesia: Spinal Medications After Delivery: Pitocin 30 Units in 500ml NS/D5W Delivery QBL: 600 Maternal Complications: None LABOR SUMMARY Attempted: No Labor Anesthesia: None LABOR INFORMATION Reason for Induction: Not Applicable Oxytocin: N/A Steroids Given: None Reason Steroids Not Administered: Not Applicable MEMBRANES Membranes Rupture Method: Artificial Rupture of Membranes: 03/14/2020 10:54 Length of Rupture (hr): 0.00 Amniotic Fluid Color: Clear Amniotic Fluid Amount: Moderate Amniotic Fluid Odor: None STAGES OF LABOR Stage 3 hr: 0 Stage 3 min: 1 CSECTION DELIVERY Primary Indication: Other CSection Incision: Lower Vertical BABY A INFORMATION Infant Delivery Date/Time: 03/14/2020 10:54 Method of Delivery: Nurse Controlled Delivery: No Born in Route : No : N/A Forceps: N/A Vacuum Extraction: N/A Shoulder Dystocia : No PRESENTATION/POSITION BABY A Presentation: Cephalic Cephalic Presentation: Vertex Breech Presentation: N/A PLACENTA INFORMATION BABY A Placenta Delivery Time : 03/14/2020 10:55 Placenta Method of Delivery: Manual Removal Placenta Status: Delivered SCORES BABY A Heart Rate 1 min: >100 bpm Resp Effort 1 min: Good Cry Reflex Irritability 1 min: Cough or Sneeze or Pulls Away Muscle Tone 1 min: Active Motion Color 1 min: Body Ovilla, Extremities Blue Resuscitation Effort 1 min: Tactile Stimulation SCORE 1 MIN: 9 Heart Rate 5 min: >100 bpm Resp Effort 5 min: Good Cry Reflex Irritability 5 min: Cough or Sneeze or Pulls Away Muscle Tone 5 min: Active Motion Color 5 min: Body [place], Extremities Blue Resuscitation Effort 5 min: N/A SCORE 5 MIN: 9 INFORMATION BABY A Gestational Age at Delivery: 40.1 Gestational Status: Full Term- 39- 40.6 Weeks Outcome : Liveborn Condition : Stable Sex: Male IDENTIFICATION BABY A Infant Verification Date/Time: 03/14/2020 11:00 ID Band Number: [id number] Mother's Name Verified: Yes RN Verifying : Agustín Almaguerrge Cornelio ORR RN WEIGHT/LENGTH BABY A Infant Birthweight (gm): 3841 Infant Weight (lb): 8 Infant Weight (oz): 7 Length (in): 20.75 Length (cm): 52.71 CORD INFORMATION BABY A No. Cord Vessels: 3 Nuchal Cord : N/A Suction: None ASSESSMENT BABY A Physical Findings at Delivery: Within Normal Limits Infant Respirations: Appears Normal Skin to Skin: Yes Infant Care By: B Placido, RN/S Caroline, DRAMATIC ARTS HISTORIAN Transferred To: Nursery BABY B INFORMATION : N/A
--- NOTE | 2020-03-14 13:44 | Birth Certificate Data ---
Cert Data Datetime Report Generated by CPN: 03/14/2020 13:44 Mother's Height 50b. Height Inches: 64 (03/14/2020 08:24:QS system process) Onset of Labor 56a. PROM >12 Hrs: 0.00 (03/14/2020 10:59:QS system process) 57a. Induction of Labor: N/A (03/14/2020 10:59:Eleanor Laurent RN) 57c. Non-Vertex Presentation A: Vertex (03/14/2020 10:59:Eleanor Laurent RN) 57d. Steroids - Lung Mat: None (03/14/2020 10:59:Eleanor Laurent RN) 57d. Steroids - Lung Mat: Not Applicable (03/14/2020 10:59:Eleanor Laurent RN) 57g. Moderate/Heavy Meconium: Clear (03/14/2020 10:59:Eleanor Laurent RN) 57h. Intolerance of Labor: Other (03/14/2020 10:59:Eleanor Lauernt RN) 57i. Epidural/Spinal Anesthesia: None (03/14/2020 10:59:Eleanor Laurent RN) Method of Delivery 58a. Forceps - Unsuccessful A: N/A (03/14/2020 10:59:Eleanor Laurent RN) 58b. Vacuum - Unsuccessful A: N/A (03/14/2020 10:59:Eleanor Laurent RN) 58c. Presentation at 58c. Presentation at - A : Vertex (03/14/2020 10:59:Eleanor Laurent RN) 58c. Presentation at - A : N/A (03/14/2020 10:59:Eleanor Laurent RN) 58c. Presentation at - A : Cephalic (03/14/2020 10:59:Eleanor Laurent RN) Final Route and Method of Del 58d. Baby A Route/Delivery: (03/14/2020 10:59:Eleanor Laurent RN) 58e. Trial of Labor Attempted: No (03/14/2020 10:59:Eleanor Laurent RN) 58e. Trial of Labor Attempted A: N/A (03/14/2020 10:59:Eleanor Luarent RN) 58e. Trial of Labor Attempted B: N/A (03/14/2020 10:59:Eleanor Laurent RN) Birthweight Baby A: 3841 (03/14/2020 10:59:Shalini Cummins RN) 60a. Pounds : 8 (03/14/2020 10:59:QS system process) 60b. Ounces: 7 (03/14/2020 10:59:QS system process) 61. GA at Delivery Baby A: 40.1 (03/14/2020 10:59:Eleanor Laurent RN) : Full Term- 39- 40.6 Weeks (03/14/2020 10:59:QS system process) 62a. 5 Minute Baby A: 9 (03/14/2020 10:59:QS system process)
[2020-03-14] MEDS ORDERED: KETOROLAC TROMETHAMINE INJ/PF 30 MG/1 ML SDV IV SCH (14:00)
[2020-03-14] MEDS: OXYCODONE-ACETAMINOPHEN 5-325 MG TABLET PO PRN ×2 (15:48→21:00)
[2020-03-14] MEDS: IBUPROFEN 800 MG TABLET PO SCH ×3 (15:51→23:13)
[2020-03-14] MEDS: DOCUSATE SODIUM 100 MG CAPSULE PO SCH (17:37)
[2020-03-15] MEDS: OXYCODONE-ACETAMINOPHEN 5-325 MG TABLET PO PRN ×5 (03:04→22:37)
[2020-03-15] MEDS: IBUPROFEN 800 MG TABLET PO SCH ×3 (05:17→17:58)
[2020-03-15 08:47] LABS: HEMATOCRIT 29.8 % (36.0-47.0); HEMOGLOBIN 10.1 g/dL (12.0-15.5); MEAN CORPUSCULAR HEMOGLOBIN 32.9 pg (27.0-33.4); MEAN CORPUSCULAR HGB CONC 34.1 g/dL (32.0-36.0); MEAN CORPUSCULAR VOLUME 97 fl (80-97); PLATELET COUNT 342 10^3/uL (150-450); RED BLOOD COUNT 3.08 10^6/uL (3.72-5.28); RED CELL DISTRIBUTION WIDTH 14.3 % (11.5-14.0); WHITE BLOOD COUNT 11.7 10^3/uL (4.0-10.5)
[2020-03-15] MEDS: DOCUSATE SODIUM 100 MG CAPSULE PO SCH ×2 (09:11→17:58)
[2020-03-15] MEDS: PRENATAL VITAMIN W DHA CAPSULE PO SCH (09:11)
--- NOTE | 2020-03-15 09:13 | PDOC PROGRESS REPORT ---
Subjective-OB Progress Note for:: 03/15/20 Physical Exam (OB) Vital Signs: Temp Pulse Resp BP Pulse Ox 97.4 F 94 15 116/76 100 03/15/20 07:41 03/15/20 07:41 03/15/20 07:41 03/15/20 07:41 03/15/20 07:41 Intake & Output 03/14/20 03/15/20 03/16/20 06:59 06:59 06:59 Intake Total 540 Output Total 1200 Balance -660 - PIH/Pre-Eclampsia Headache: Absent Epigastric Pain: No Visual Changes: No - Dressing Removed: No Closure Type: opsite - Maternal Morbidity 59. Maternal Morbidity (serious complications experinced by the mother associated with labor and delivery: None of the above - Lochia Lochia Amount: Small 10-25 ml Lochia Color: Rubra/Red - Abdomen Description: Tender Hernia Present: No Bowel Sounds: Normoactive Flatus Presence: Present Stool: No Fundal Description: Firm, Midline Fundal Height: u/u - u/2 Objective-Diagnostic Laboratory: 03/15/20 07:56 03/15/20 07:56 WBC 11.7 H RBC 3.08 L Hgb 10.1 L Hct 29.8 L MCV 97 MCH 32.9 MCHC 34.1 RDW 14.3 H Plt Count 342 Assessment and Plan(PN) - Time Spent with Patient Time with patient: 15-25 minutes Medications reviewed and adjusted accordingly: Yes - Disposition Anticipated Discharge Disposition: Home, Self Care Anticipated Discharge Timeframe: within 36 hours
[2020-03-16] MEDS: IBUPROFEN 800 MG TABLET PO SCH ×2 (05:40→19:09)
[2020-03-16] MEDS: PRENATAL VITAMIN W DHA CAPSULE PO SCH (09:16)
[2020-03-16] MEDS: DOCUSATE SODIUM 100 MG CAPSULE PO SCH (09:16)
--- NOTE | 2020-03-16 11:44 | PDOC DISCHARGE SUMMARY ---
Impression - Admit/DC Date/PCP Admission Date/Primary Care Provider: 03/14/20 05:09 JEANE RINALDI MD Discharge Date: 03/16/20 - POD #2, doing well, desires to go home today. A+, , Primary for FTP. - Discharge Diagnosis (1) Delivery by elective caesarean section Is this a current diagnosis for this admission?: Yes (2) Is this a current diagnosis for this admission?: Yes (3) Suspected macroscopic fetus Is this a current diagnosis for this admission?: Yes - Additional Information Resuscitation Status: Full Code Discharge Diet: As Tolerated, Regular Discharge Activity: Activity As Tolerated, No Driving, No Lifting Over 10 Pounds, Pelvic Rest Referrals: JEANE RINALDI MD [Primary Care Provider] - Prescriptions: Ibuprofen [Motrin 800 mg Tablet] 800 mg PO Q6 #60 tablet Oxycodone HCl/Acetaminophen [Percocet 5-325 mg Tablet] 1 tab PO Q4HP PRN #30 tablet PRN Reason: Pain Scale Of 4 Home Medications: Tramadol HCl [Ultram 50 mg Tablet] 50 mg PO Q6H PRN #20 tablet 01/19/16 Ibuprofen [Motrin 800 mg Tablet] 800 mg PO Q6 #60 tablet 03/16/20 Oxycodone HCl/Acetaminophen [Percocet 5-325 mg Tablet] 1 tab PO Q4HP PRN #30 t ablet 03/16/20 HPI Reason(s) for Admission: Onset of Labor Procedures: Ultrasound Intrapartum Procedure(s): : Low Cervical, Transverse Hospital Course Hospital Course: routine 59. Maternal Morbidity (serious complications experinced by the mother associated with labor and delivery: None of the above Results Laboratory Results: WBC 11.7 10^3/uL (4.0-10.5) H 03/15/20 07:56 RBC 3.08 10^6/uL (3.72-5.28) L 03/15/20 07:56 Hgb 10.1 g/dL (12.0-15.5) L 03/15/20 07:56 Hct 29.8 % (36.0-47.0) L 03/15/20 07:56 MCV 97 fl (80-97) 03/15/20 07:56 MCH 32.9 pg (27.0-33.4) 03/15/20 07:56 MCHC 34.1 g/dL (32.0-36.0) 03/15/20 07:56 RDW 14.3 % (11.5-14.0) H 03/15/20 07:56 Plt Count 342 10^3/uL (150-450) 03/15/20 07:56 Lymph % (Auto) 27.4 % (13-45) 03/14/20 06:18 Maverick % (Auto) 6.7 % (3-13) 03/14/20 06:18 Eos % (Auto) 1.0 % (0-6) 03/14/20 06:18 Baso % (Auto) 0.2 % (0-2) 03/14/20 06:18 Absolute Neuts (auto) 6.0 10^3/uL (1.7-8.2) 03/14/20 06:18 Absolute Lymphs (auto) 2.5 10^3/uL (0.5-4.7) 03/14/20 06:18 Absolute Monos (auto) 0.6 10^3/uL (0.1-1.4) 03/14/20 06:18 Absolute Eos (auto) 0.1 10^3/uL (0.0-0.6) 03/14/20 06:18 Absolute Basos (auto) 0.0 10^3/uL (0.0-0.2) 03/14/20 06:18 Seg Neutrophils % 64.7 % (42-78) 03/14/20 06:18 Urine Color YELLOW 03/14/20 05:55 Urine Appearance CLOUDY 03/14/20 05:55 Urine pH 6.0 (5.0-9.0) 03/14/20 05:55 Ur Specific [place] 1.016 03/14/20 05:55 Urine Protein 30 mg/dL (NEGATIVE) H 03/14/20 05:55 Urine Glucose (UA) NEGATIVE mg/dL (NEGATIVE) 03/14/20 05:55 Urine Ketones NEGATIVE mg/dL (NEGATIVE) 03/14/20 05:55 Urine Blood SMALL (NEGATIVE) H 03/14/20 05:55 Urine Nitrite NEGATIVE (NEGATIVE) 03/14/20 05:55 Urine Bilirubin NEGATIVE (NEGATIVE) 03/14/20 05:55 Urine Urobilinogen NEGATIVE mg/dL (<2.0) 03/14/20 05:55 Ur Leukocyte Esterase MODERATE (NEGATIVE) H 03/14/20 05:55 Urine WBC (Auto) 24 /HPF 03/14/20 05:55 Urine RBC (Auto) 13 /HPF 03/14/20 05:55 U Hyaline Cast (Auto) 1 /LPF 03/05/20 12:25 Urine Bacteria (Auto) 3+ /HPF 03/14/20 05:55 Squamous Epi Cells Auto 37 /HPF 03/14/20 05:55 Urine Mucus (Auto) OCC /LPF 03/14/20 05:55 Urine Ascorbic Acid NEGATIVE (NEGATIVE) 03/14/20 05:55 Urine Opiates Screen NEGATIVE 03/14/20 05:55 Urine Methadone Screen NEGATIVE 03/14/20 05:55 Ur Barbiturates Screen NEGATIVE 03/14/20 05:55 Ur Phencyclidine Scrn NEGATIVE 03/14/20 05:55 Ur Amphetamines Screen NEGATIVE 03/14/20 05:55 U Benzodiazepines Scrn NEGATIVE 03/14/20 05:55 Urine Cocaine Screen NEGATIVE 03/14/20 05:55 U Marijuana (THC) Screen NEGATIVE 03/14/20 05:55 COVID-19 Source NASOPHARYNGEAL 03/05/20 12:17 COVID-19 (ELLIE) NOT DETECTED 03/05/20 12:17 Blood Type A POSITIVE 03/12/20 08:20 Antibody Screen NEGATIVE 03/12/20 08:20 Plan Plan of Treatment: d/c home, f/up for incision check in one week Time Spent: Less than 30 Minutes
[2020-03-16] MEDS: OXYCODONE-ACETAMINOPHEN 5-325 MG TABLET PO PRN (14:45)
[2020-03-16 19:12] VITALS: BP 113/58
== END 2020-03-16 14:25 | disposition home or self-care (01) | DRG 788 ==
LOC: 2S 05:09
PROVIDERS: ADMIT Obstetrics & Gynecology; ATTEND Obstetrics & Gynecology
PROC: 10D00Z1 Extraction of Products of Conception, Low, Open Approach (ICD-10-PCS; principal; 2020-03-14)
DX: O36.63X0 Maternal care for excessive fetal growth, third trimester, not applicable or unspecified (principal); O99.334 Smoking (tobacco) complicating childbirth; F17.210 Nicotine dependence, cigarettes, uncomplicated; O48.0 Post-term pregnancy; Z37.0 Single live birth; Z11.59 Encounter for screening for other viral diseases; Z3A.40 40 weeks gestation of pregnancy
CPT/HCPCS: 1961; 36415; 59025; 64486; 76942; 80307; 81001; 85025; 85027; 86850; 86900; 86901; 87635; 94799; C9803; J0690; J1170; J1885; J2405; J2550; J2590; J3010; J3490